=== PATIENT | female | born 1970 | race Caucasian/White ===

== ENCOUNTER 2020-05-16 10:41 | Day surgery (SDC) | payer OTHER, SELFPAY ==
[2020-05-15 18:12] VITALS: BMI 52.0
[2020-05-16] VITALS (9 sets, daily range): BP systolic 107–154; BP diastolic 43–87; PULSE 71–89; RESP 11–24; TEMP 36.2–36.6; O2SAT 95–100
--- NOTE | 2020-05-16 | SCC_ITS ---
Procedure Done: 1. ORIF left proximal humerus fracture. 48.9 seconds of fluoroscopic guidance, for a cumulative dose of 4.62 mGy, was provided to Dr. Dominguez by the radiology department. C-arm images of the LEFT humerus were saved for the patient's permanent record. [facility]
--- NOTE | 2020-05-16 | XR_ITS ---
WS: [id number] C-ARM RADIOGRAPHS LEFT HUMERUS; 5 IMAGES HISTORY: ORIF humerus COMPARISON: None available. Status post long plate and screw fixation stabilizing a fracture in the proximal third of the humerus . Fracture now in good position alignment. XR/[place] [id number] IMPRESSION: ORIF comminuted fracture proximal LEFT humerus. Fractures in good position maria teresa cisneros.
--- NOTE | 2020-05-16 11:05 | ANES.PREANE2 ---
Pre-Anesthetic Assessment Pre-Anesthetic Assessment: Height/Weight: Height 1.68 m Weight 146.057 kg Temp Pulse Resp BP Pulse Ox 97.3 F L 71 18 143/85 96 05/16/20 11:02 05/16/20 11:02 05/16/20 11:02 05/16/20 11:02 05/16/20 11:02 Preop Diagnosis: left humerus fracture Proposed Procedure: Operation Date: 05/16/20 12:00 Proposed Procedures p ORIF Proximal Humerus S42.34 [id number](Left) - Salas Dominguez DO Last intake: Intake Last Liquid Date 05/15/20 Last Liquid Time 20:00 Last Solid Date 05/15/20 Last Solid Time 20:00 Social: Social History: Alcohol (occ) and No tobacco Exam: Pre-Anes Outpt Exam: alert, oriented x 3, clear to auscultation bilaterally and regular rate & rhythm Airway: Submandibular: WNL Cervical ROM: WNL MP: 3 Additional comments: teeth ok History/ROS: No significant history except as noted Pulmonary: Pulmonary: Asthma, STEIN and Sleep apnea CV/HEM: CV/HEM: HTN : : None reported Hepatic: Hepatic: None reported GI: GI: GERD Metabolic: Metabolic: Morbid obesity Musc/skel: Musc/skel: OA/DJD Neuropsych: Neuropsych: Anxiety, Bipolar and Depression Anesthetic Plan: ASA status: 3 Anesthesia: Anesthesia Evaluation and General Risk of > 500 ml blood loss (7ml/kg in children): Yes, adequate IV access and fluids planned PFSH Anesthesia PFSH: Surgical History H/O: hysterectomy History of endometrial ablation History of tonsillectomy Hx of cholecystectomy Female Reproductive History: Date of last menstrual period: 04/23/20 Data Anesthesia Cardiac Studies: No Data to Display
[2020-05-16] MEDS: sodium chloride 0.9% 1,000 ML 30 ML IV (11:10)
[2020-05-16 11:15] LABS: Glucose Point of Care 117 mg/dL (70-110)
[2020-05-16] MEDS: midazolam 1 mg/mL INJ 5 ML 5 MG IVP (11:24)
[2020-05-16] MEDS: fentaNYL 50 mcg/mL INJ 2mL 100 MCG IVP (11:25)
[2020-05-16 11:36] LABS: HCG, Serum Qual Negative (Negative)
--- NOTE | 2020-05-16 11:39 | ANES.PROC ---
Anesthesia Procedures Procedure/Date: 05/16/20 Nerve Block ^: Nerve Block 1: Main Anesthesia: general anesthesia Time Out Performed: Yes Consent: requested by attending/covering physician, from patient, risks and benefits reviewed and patient agrees to proceed Nerve block location: interscalene (left) Anesthesia monitors applied: pulse oximetry, EKG, BP cuff and oxygen Nerve block position: semi sitting Anesthetic Used: ropivicaine 0.5% and with decadron (4mg) Amount of anesthesia used (mL): 30 Ultrasound used to: recognize landmarks, visualize and ID brachial plexus and visualize and ID interscalene groove Nerve Stimulator Used?: Yes Interscalene/Femoral BLK: 2 stimuplex 22 g needle used for position and inplane approach, visualize local anesthetic spread and no vascular puncture identified Injection: neg aspiration of heme and paresthesia +/- Patient Tolerated Procedure: well and no complications Complications: none
[2020-05-16] MEDS: clindamycin 900 MG/50 ML PREMIX 100 MG IV (12:05)
--- NOTE | 2020-05-16 14:21 | PM.OP ---
Operative Report Date of procedure: May 16, 2020 Pre-op Diagnosis: left humerus fracture Procedure Done: 1. ORIF left proximal humerus fracture Surgeon: Salas Dominguez Anesthesia: General Estimated blood loss (mL): 150 Condition: stable Disposition: PACU Procedure: 1. ORIF left proximal humerus fracture Patient is brought to the operative suite after undergoing anesthesia was placed in the beachchair position all areas impingement were well-padded. Skin incision made after being prepped and draped. Deltopectoral approach was used. The fracture was identified reduced and 2 lag screws were placed to compress the major fragments. Extension was brought to placing a proximal humerus plate. Plate was placed along the lateral border of the humerus up to the humeral head. Multiple locking screws were placed in the proximal portion of the head cortical screws placed just proximal to the head prior to placing the locking screws. And then 4 cortical screws were placed distal to the fracture fragments. AP lateral fluoroscopy ensured the fracture and hardware preposition wounds were irrigated and closed with Vicryl and geno sterile dressings applied patient was transferred to the PACU in stable condition.
--- NOTE | 2020-05-21 08:08 | W.PM.OPSUD ---
Surgery/Procedure H&P Update DATE OF PROCEDURE: May 16, 2020 DATE H&P PERFORMED: 05/15/20 H&P UPDATE INFORMATION: I have reviewed H&P completed within last 30 days and I have examined patient prior to procedure PREOP DIAGNOSIS: left humerus fracture PLANNED PROCEDURE: Operation Date: 05/16/20 12:00 Proposed Procedures p ORIF Proximal Humerus S42.34 [id number](Left) - Salas Dominguez DO
== END 2020-05-16 15:40 | disposition home or self-care (01) ==
PROVIDERS: Anesthesiology; PCP Internal Medicine; Visit Provider Orthopaedic Surgery
PROC: (CPT 23615; principal; 2020-05-16 12:00)
DX: S42.202A Unspecified fracture of upper end of left humerus, initial encounter for closed fracture (principal); X58.XXXA Exposure to other specified factors, initial encounter; W01.0XXA Fall on same level from slipping, tripping and stumbling without subsequent striking against object, initial encounter; Y99.0 Civilian activity done for income or pay; Z79.82 Long term (current) use of aspirin; I10 Essential (primary) hypertension; G47.30 Sleep apnea, unspecified; K21.9 Gastro-esophageal reflux disease without esophagitis; E66.01 Morbid (severe) obesity due to excess calories; Z68.43 Body mass index [BMI] 50.0-59.9, adult; M19.90 Unspecified osteoarthritis, unspecified site
CPT/HCPCS: 23680; 12345; 36415; 36416; 64415; 73060; 76000; 76942; 82962; 84703; 96365; C1713; J0131; J0330; J1100; J2250; J2405; J2704; J2795; J3010; J3490; J7030

== ENCOUNTER → 2020-06-06 10:59 | Outpatient (BNVA) | payer OTHER, SELFPAY | PROVIDERS: PCP Internal Medicine; Visit Provider Orthopaedic Surgery | DX: Z48.89 Encounter for other specified surgical aftercare (principal) | CPT/HCPCS: 73060; 73080 ==

== ENCOUNTER → 2020-07-23 15:55 | Outpatient (BNVA) | payer OTHER, SELFPAY | PROVIDERS: PCP Internal Medicine; Visit Provider Orthopaedic Surgery | DX: Z48.89 Encounter for other specified surgical aftercare (principal) | CPT/HCPCS: 73060 ==

== ENCOUNTER → 2020-09-17 14:45 | Outpatient (BNVA) | payer OTHER, SELFPAY | PROVIDERS: PCP Internal Medicine; Visit Provider Orthopaedic Surgery | DX: Z48.89 Encounter for other specified surgical aftercare (principal) | CPT/HCPCS: 73060 ==